=== PATIENT | female | born 1945 | race Native Hawaiian/Other Pacific Islander ===

== ENCOUNTER 2018-08-12 15:12 | Outpatient (CLI) | payer OTHER ==
[2018-08-12 15:39] LABS: POTASSIUM 4.8 mmol/L (3.6-5.2)
[2018-08-12 15:43] LABS: PLATELET COUNT 568 K/uL (152-353)
== END 2018-08-12 22:55 | disposition home or self-care (01) ==
LOC: LAB 15:12
PROVIDERS: Internal Medicine Infectious Disease
DX: N39.0 Urinary tract infection, site not specified (principal); B95.61 Methicillin susceptible Staphylococcus aureus infection as the cause of diseases classified elsewhere
CPT/HCPCS: 80048; 85027